=== PATIENT | female | born 1935 | race Two or more races ===

== ENCOUNTER 2018-01-08 15:24 | Inpatient (IN) | payer MEDICARE, MEDICAID ==
[2018-01-08 16:41] LABS: BASOPHILE ABSOLUTE 0.1 Th/cumm (0-0.2); EOSINOPHILE ABSOLUTE 0.1 Th/cmm (0.1-0.4); LYMPHOCYTE ABSOLUTE 1.6 Th/cmm (1.5-3.0); MEAN CELL VOLUME 89.2 fl (81-100); MONOCYTE ABSOLUTE 0.5 Th/cmm (0.3-1.0)
[2018-01-08 16:43] LABS: % BASOPHILS 1.7 % (0.0-2.0); % LYMPHOCYTES 25.1 % (20.0-50.0); % MONOCYTES 7.8 % (2.0-10.0); % NEUTROPHILS 63.4 % (40.0-80.0); HEMATOCRIT 38.1 % (41.0-60); HEMOGLOBIN 12.7 gm/dL (12-16); MEAN CORPUSCULAR HEMOGLOBIN 29.7 pg (27.0-31.0); MEAN CORPUSCULAR HGB CONC 33.3 pg (28.0-36.0); MEAN PLATELET VOLUME 7.8 fl; NEUTROPHILE ABSOLUTE 4.2 Th/cmm (1.8-8.0); PLATELET COUNT 253 Th/cmm (150-400); RED BLOOD COUNT 4.27 Mil/cmm (3.80-5.20); WHITE BLOOD COUNT 6.5 Th/cmm (4.8-10.8)
[2018-01-08 16:55] LABS: INR 1.76 (0.5-1.4); PROTHROMBIN TIME (TEST) 17.8 SECONDS (9.5-11.5)
[2018-01-08 17:01] LABS: ALB/GLOB RATIO 1.2 (1.0-1.8); ALBUMIN 3.7 gm/dL (3.7-5.3); ALKALINE PHOSPHATASE 90 U/L (34-104); ANION GAP 11.7 (7.0-16.0); BILIRUBIN,TOTAL 0.4 mg/dL (0.3-1.0); BUN - UREA NITROGEN 26 mg/dL (7-25); CARBON DIOXIDE 27.5 mEq/L (21.0-31.0); CHLORIDE 100 mEq/L (98-107); CREATININE - SERUM 0.8 mg/dL (0.6-1.2); GLUCOSE 103 mg/dL (70-105); MAGNESIUM 2.2 mg/dL (1.9-2.7); PHOSPHOROUS 3.4 mg/dL (2.5-5.0); POTASSIUM SERUM 4.2 mEq/L (3.5-5.1); SGOT 24 U/L (13-39); SGPT/ALT 26 U/L (7-52); SODIUM SERUM 135 mEq/L (136-145); TOTAL PROTEIN,SERUM 6.9 gm/dL (6.0-8.3)
[2018-01-08] MEDS ORDERED: D5LR 1,000 ML IV ONE (17:03)
[2018-01-08 17:07] LABS: URINE SOURCE CATH
[2018-01-08 17:08] LABS: URINE BILIRUBIN NEGATIVE (NEGATIVE); URINE BLOOD NEGATIVE (NEGATIVE); URINE GLUCOSE (UA) NEGATIVE (NEGATIVE); URINE KETONE NEGATIVE (NEGATIVE); URINE LEUKOCYTE ESTERASE NEGATIVE (NEGATIVE); URINE MICROSCOPIC INDICATED? YES; URINE NITRATE POSITIVE (NEGATIVE); URINE PROTEIN NEGATIVE (NEGATIVE); URINE UROBILINOGEN 0.2 E.U./dL (0.2 - 1.0)
[2018-01-08 17:11] LABS: URINE CLARITY HAZY (CLEAR); URINE COLOR YELLOW
[2018-01-08 17:14] LABS: URINE BACTERIA 4+ /hpf (NONE SEEN); URINE EPITHELIAL CELLS FEW /lpf (FEW); URINE RBC 0-2 /hpf (0-5)
[2018-01-08 17:19] LABS: AMPHETAMINE URINE NEGATIVE (NEGATIVE); BARBITURATES URINE NEGATIVE (NEGATIVE); BENZODIAZEPINES QUAL URINE NEGATIVE (NEGATIVE); CANNABINOID THC NEGATIVE (NEGATIVE); COCAINE METABOLITE QUAL URINE NEGATIVE (NEGATIVE); METHADONE URINE NEGATIVE (NEGATIVE); METHAMPHETAMINES QUAL URINE NEGATIVE (NEGATIVE); OPIATES (MORPHINE) QUAL. URINE NEGATIVE (NEGATIVE); PHENCYCLIDINE (PCP) URINE NEGATIVE (NEGATIVE); TRICYCLICS (TCA) QUAL. URINE NEGATIVE (NEGATIVE)
--- NOTE | 2018-01-08 17:27 | ED Physician Chart ---
ED Chief Complaint/HPI - Patient Information Date Seen:: 01/08/18 Time Seen:: 15:35 Chief Complaint:: poor appetite History of Present Illness:: poor appetite in a patient who has had a previous stroke. according to the daughter, she occasionally coughs with liquids. she has had pneumonia in the past. she is on coumadin at this time. Allergies:: Allergies Allergy/AdvReac Type Severity Reaction Status Date / Time Penicillins [PCN] Allergy Verified 01/08/18 15:35 Vitals:: Vital Signs - 8 hr 01/08/18 15:35 Temp 98.9 F HR 66 RR 16 BP 106/65 O2 Sat % 97 Historian:: Family Member Review:: Nurse's Note Reviewed ED Review of Systems - Review of Systems General/Constitutional: No fever, No chills, No weight loss, No weakness, No diaphoresis, No edema, No loss of appetite, Other Skin: Skin lesions, No rash, No bruising Head: No headache, No light-headedness Eyes: No loss of vision, No pain, No diplopia ENT: No earache, No nasal drainage, No sore throat, No tinnitus Neck: No neck pain, No swelling, No thyromegaly, No stiffness, No mass noted Cardio Vascular: No chest pain, No palpitations, No PND, No orthopnea, No edema Pulmonary: No SOB, No cough, No sputum, No wheezing GI: No nausea, No vomiting, No diarrhea, No pain, No melena, No hematochezia, No constipation, No hematemesis G/U: No dysuria, No frequency, No hematuria Musculoskeletal: No bone or joint pain, No back pain, No muscle pain Endocrine: No polyuria, No polydipsia Psychiatric: No prior psych history, No depression, No anxiety, No suicidal ideation Hematopoietic: No bruising, No lymphadenopathy Allergic/Immuno: No urticaria, No angioedema Neurological: No syncope, No focal symptoms, No weakness, No paresthesia, No headache, No seizure, No dizziness, No confusion, No vertigo ED Past Medical History - Past Medical History Obtainable: No Past Medical History: HTN, CVA/TIA, Other (atrial fibrillation; pneumonia) Family Medical History - Family Member Daughter Living Status: Still Living Hx Family Diabetes: Yes ED Physical Exam - Physical Examination General/Constitutional: Awake, Well-developed, well-nourished, Alert, No distress, GCS 15, Non-toxic appearing, Ambulatory Head: Atraumatic Eyes: Lids, conjuctiva normal, PERRL, EOMI Skin: Nl inspection, No rash, No skin lesions, No ecchymosis, Well hydrated, No lymphadenopathy ENMT: External ears, nose nl Neck: Nontender, No nuchal rigidity Respiratory: Nl effort/Exclusion Other Respiratory comments:: decreased breath sounds at bases. Cardio Vascular: RRR, No murmur, gallop, rubs, NL S1 S2 GI: No tenderness/rebounding/guarding, No organomegaly, No hernia, Normal BS's, Nondistended : No CVA tenderness Other Extremities comments:: RUE and RLE with decreased strength and with edema. Neuro/Psych: Mood normal Other Neuro/Psych comments:: RUE and RLE with decreased strength and with edema. Other Misc comments:: sacral stage I ED Labs/Radiology/EKG Results - Lab Results Results: Laboratory Tests 01/08/18 01/08/18 01/08/18 16:30 16:30 16:30 WBC 6.5 RBC 4.27 Hgb 12.7 Hct 38.1 L MCV 89.2 MCH 29.7 MCHC Differential 33.3 RDW 17.0 Plt Count 253 MPV 7.8 Neutrophils % 63.4 Lymphocytes % 25.1 Monocytes % 7.8 Eosinophils % 2.0 Basophils % 1.7 PT INR PTT (Actin FS) Sodium 135 L Potassium 4.2 Chloride 100 Carbon Dioxide 27.5 Anion Gap 11.7 BUN 26 H Creatinine 0.8 Est GFR ( Amer) TNP Est GFR (Non-Af Amer) TNP BUN/Creatinine Ratio 32.5 Glucose 103 Whole Bld Lactic Acid Calcium 9.0 Phosphorus 3.4 Magnesium 2.2 Total Bilirubin 0.4 AST 24 ALT 26 Alkaline Phosphatase 90 Troponin I 0.01 Total Protein 6.9 Albumin 3.7 Globulin 3.2 Albumin/Globulin Ratio 1.2 Urine Source Urine Color Urine Clarity Urine pH Ur Specific [place] Urine Protein Urine Glucose (UA) Urine Ketones Urine Blood Urine Nitrate Urine Bilirubin Urine Urobilinogen Ur Leukocyte Esterase Urine RBC Urine WBC Ur Epithelial Cells Urine Bacteria Urine Opiates Screen Urine Methadone Screen Ur Barbiturates Screen Ur Tricyclics Screen Ur Phencyclidine Scrn Amphetamines Screen U Methamphetamines Scrn U Benzodiazepines Scrn U Cocaine Metab Screen U Cannabinoids Screen 01/08/18 01/08/18 01/08/18 16:30 16:30 16:54 WBC RBC Hgb Hct MCV MCH MCHC Differential RDW Plt Count MPV Neutrophils % Lymphocytes % Monocytes % Eosinophils % Basophils % PT 17.8 H INR 1.76 H PTT (Actin FS) 32.1 Sodium Potassium Chloride Carbon Dioxide Anion Gap BUN Creatinine Est GFR ( Amer) Est GFR (Non-Af Amer) BUN/Creatinine Ratio Glucose Whole Bld Lactic Acid 1.14 Calcium Phosphorus Magnesium Total Bilirubin AST ALT Alkaline Phosphatase Troponin I Total Protein Albumin Globulin Albumin/Globulin Ratio Urine Source CATH Urine Color YELLOW Urine Clarity HAZY Urine pH 7.0 Ur Specific [place] 1.010 Urine Protein NEGATIVE Urine Glucose (UA) NEGATIVE Urine Ketones NEGATIVE Urine Blood NEGATIVE Urine Nitrate POSITIVE H Urine Bilirubin NEGATIVE Urine Urobilinogen 0.2 Ur Leukocyte Esterase NEGATIVE Urine RBC 0-2 Urine WBC 6-10 H Ur Epithelial Cells FEW Urine Bacteria 4+ H Urine Opiates Screen Urine Methadone Screen Ur Barbiturates Screen Ur Tricyclics Screen Ur Phencyclidine Scrn Amphetamines Screen U Methamphetamines Scrn U Benzodiazepines Scrn U Cocaine Metab Screen U Cannabinoids Screen 01/08/18 16:54 WBC RBC Hgb Hct MCV MCH MCHC Differential RDW Plt Count MPV Neutrophils % Lymphocytes % Monocytes % Eosinophils % Basophils % PT INR PTT (Actin FS) Sodium Potassium Chloride Carbon Dioxide Anion Gap BUN Creatinine Est GFR ( Amer) Est GFR (Non-Af Amer) BUN/Creatinine Ratio Glucose Whole Bld Lactic Acid Calcium Phosphorus Magnesium Total Bilirubin AST ALT Alkaline Phosphatase Troponin I Total Protein Albumin Globulin Albumin/Globulin Ratio Urine Source Urine Color Urine Clarity Urine pH Ur Specific [place] Urine Protein Urine Glucose (UA) Urine Ketones Urine Blood Urine Nitrate Urine Bilirubin Urine Urobilinogen Ur Leukocyte Esterase Urine RBC Urine WBC Ur Epithelial Cells Urine Bacteria Urine Opiates Screen NEGATIVE Urine Methadone Screen NEGATIVE Ur Barbiturates Screen NEGATIVE Ur Tricyclics Screen NEGATIVE Ur Phencyclidine Scrn NEGATIVE Amphetamines Screen NEGATIVE U Methamphetamines Scrn NEGATIVE U Benzodiazepines Scrn NEGATIVE U Cocaine Metab Screen NEGATIVE U Cannabinoids Screen NEGATIVE ED Assessment - Assessment General Assessment: EKG from 16:05:47 p.m.: atrial fibrillation, Q wave III and AVF with flipped t wave in V1. CXR reveals some bronchograms and a possible early RLL infiltrate. ED Septic Shock - . Is Septic Shock (SBP<90, OR Lactate>4 mmol\L) present?: No - <6hrs of presentation: Vital Signs: Vital Signs - 8 hr 01/08/18 15:35 Temp 98.9 F HR 66 RR 16 BP 106/65 O2 Sat % 97 ED Reassessment (Disposition) - Reassessment Reassessment Condition:: Unchanged - Diagnosis Diagnosis:: Right lower lobe infiltrate Urinary tract infection Hemiplegia s/p prior CVA Elevated prothrombin time - Patient Disposition Discharge/Transfer:: Acute Care w/in this hosp Accepting Physician:: Dr. Alvarado Time Called:: 17:48 Time Responded:: 17:48 Admitted to:: Telemetry Condition at Disposition:: Stable, Unchanged
[2018-01-08] MEDS ORDERED: Levofloxacin 500mg/100mL 500 MG/100 ML BAG IV ONE ×2 (17:54→18:12)
[2018-01-08 21:22] VITALS: BP 122/69
[2018-01-09 05:20] LABS: EOSINOPHILE ABSOLUTE 0.2 Th/cmm (0.1-0.4); HEMOGLOBIN 11.9 gm/dL (12-16); LYMPHOCYTE ABSOLUTE 1.3 Th/cmm (1.5-3.0); MONOCYTE ABSOLUTE 0.5 Th/cmm (0.3-1.0); NEUTROPHILE ABSOLUTE 4.8 Th/cmm (1.8-8.0); WHITE BLOOD COUNT 6.8 Th/cmm (4.8-10.8)
[2018-01-09 05:23] LABS: % BASOPHILS 0.2 % (0.0-2.0); % EOSINOPHILS 2.3 % (0.0-5.0); % LYMPHOCYTES 19.2 % (20.0-50.0); % MONOCYTES 6.9 % (2.0-10.0); % NEUTROPHILS 71.4 % (40.0-80.0); HEMATOCRIT 35.8 % (41.0-60); MEAN CELL VOLUME 89.5 fl (81-100); MEAN CORPUSCULAR HEMOGLOBIN 29.7 pg (27.0-31.0); MEAN CORPUSCULAR HGB CONC 33.2 pg (28.0-36.0); RED CELL DISTRIBUTION WIDTH 17.2 % (11.5-20.0)
[2018-01-09 05:26] LABS: PLATELET COUNT 200 Th/cmm (150-400)
[2018-01-09] MEDS: Sodium Chloride 0.45% 1,000 ML IV SCH (05:58)
[2018-01-09 06:47] LABS: ALB/GLOB RATIO 1.1 (1.0-1.8); ALBUMIN 3.2 gm/dL (3.7-5.3); ALKALINE PHOSPHATASE 79 U/L (34-104); ANION GAP 11.5 (7.0-16.0); BILIRUBIN,TOTAL 0.6 mg/dL (0.3-1.0); BUN - UREA NITROGEN 18 mg/dL (7-25); CALCIUM SERUM 8.6 mg/dL (8.6-10.3); CARBON DIOXIDE 25.3 mEq/L (21.0-31.0); CHLORIDE 107 mEq/L (98-107); CREATININE - SERUM 0.7 mg/dL (0.6-1.2); CREATININE KINASE 31 U/L (30-223); GLUCOSE 95 mg/dL (70-105); POTASSIUM SERUM 3.8 mEq/L (3.5-5.1); SGOT 20 U/L (13-39); SGPT/ALT 21 U/L (7-52); SODIUM SERUM 140 mEq/L (136-145)
--- NOTE | 2018-01-09 10:22 | Diagnostic Imaging Report ---
Exam: CT examination of the brain. HISTORY: CVA. Total DLP equals 685 CTDI equals 37.4 Findings: Multiple contiguous thin section of the brain were obtained from the base of skull to the vertex without the administration of contrast material, no prior studies available for comparison The study demonstrates large area hypodensity suggestive of extensive encephalomalacia of the left parietal lobe. There is evidence for chronic ischemic white matter changes bilaterally. There is no evidence for hemorrhage midline shift or edema. The bony calvarium is intact. The paranasal sinuses are well aerated. IMPRESSION: Extensive encephalomalacia status post wide infarct in distribution left middle cerebral artery. Correlation prior exams recommended. Atrophy
--- NOTE | 2018-01-09 10:23 | Diagnostic Imaging Report ---
Portable chest x-ray Time: 1642 History: Pneumonia Allowing for portable technique the heart size is normal. No focal pulmonary parenchymal processes. No hilar or mediastinal abnormalities. Mild congestion is present Impression: No acute abnormalities. Mild congestion.
[2018-01-09] MEDS ORDERED: Ipratropium Neb 0.5 mg/2.5 mL UD HHN PRN (12:48)
[2018-01-09] MEDS ORDERED: Levofloxacin 500mg/100mL 500 MG/100 ML BAG IV SCH (13:00)
[2018-01-09] MEDS: Potassium Chloride 20 mEq ER Tab PO SCH (13:21)
[2018-01-09] MEDS ORDERED: Diltiazem 30 mg Tab PO SCH (14:00)
--- NOTE | 2018-01-09 15:55 | History & Physical ---
ADMIT DATE: 01/09/2018 CHIEF COMPLAINT: Poor appetite and weakness. HISTORY OF PRESENT ILLNESS: This is an 82-year-old female who was admitted to [facility] with a chief complaint of weakness and poor appetite. REVIEW OF SYSTEMS: GENERAL: This is an 82-year-old female who appears as stated. HEAD: Denies headache, denies dizziness. EYES: Denies eye pain. Denies blurring of vision. NECK: Denies neck pain. Denies nuchal rigidity. CHEST: Denies chest pain. Denies palpitation. PULMONARY: Denies shortness of breath. Positive cough. GASTROINTESTINAL: Denies abdominal pain. Denies constipation. Denies diarrhea. MUSCULOSKELETAL: Denies joint pain. Denies muscle pain. SOCIAL HISTORY: The patient lives in a shelter facility prior to hospitalization. PAST SURGICAL HISTORY: Unremarkable. FAMILY HISTORY: Unremarkable. PAST MEDICAL HISTORY: Includes hypertension, atrial fibrillation. PHYSICAL EXAMINATION: VITAL SIGNS: Temperature 97.3, heart rate of 86, blood pressure 124/75, respiration 18, 96% on room air. HEENT: Head is atraumatic, normocephalic. Eyes: Bilateral conjunctivae are clear. Bilateral pupils are equally round and reactive. NECK: Supple. No JVD. CARDIOVASCULAR: S1 and S2, without murmur. PULMONARY: Clear to auscultation. GASTROINTESTINAL: Soft and nontender without guarding. Positive bowel sounds. MUSCULOSKELETAL: No clubbing. No cyanosis noted. ASSESSMENT: 1. Urinary tract infection. 2. History of cerebrovascular accident. 3. Hypertension. 4. Atrial fibrillation. PLAN: We will admit the patient and will initiate IV antibiotics until we get the culture results. We are also going to follow up with the ID doctor and dope mixer and do medication reconciliation accordingly. Treatment plans were discussed with the patient's nurse. Treatment plans were discussed with Dr. Alvarado. JOB# [id number]
[2018-01-09] MEDS: Diltiazem 30 mg Tab PO SCH (17:55)
[2018-01-10] MEDS: Diltiazem 30 mg Tab PO SCH ×4 (00:01→17:17)
[2018-01-10] MEDS: Sodium Chloride 0.45% 1,000 ML IV SCH (04:40)
[2018-01-10 05:42] LABS: % BASOPHILS 0.1 % (0.0-2.0); % EOSINOPHILS 2.5 % (0.0-5.0); % LYMPHOCYTES 26.4 % (20.0-50.0); % MONOCYTES 8.2 % (2.0-10.0); % NEUTROPHILS 62.8 % (40.0-80.0); EOSINOPHILE ABSOLUTE 0.2 Th/cmm (0.1-0.4); HEMATOCRIT 35.3 % (41.0-60); LYMPHOCYTE ABSOLUTE 1.6 Th/cmm (1.5-3.0); MEAN CELL VOLUME 89.7 fl (81-100); MEAN CORPUSCULAR HEMOGLOBIN 30.3 pg (27.0-31.0); MEAN CORPUSCULAR HGB CONC 33.8 pg (28.0-36.0); MEAN PLATELET VOLUME 7.7 fl; MONOCYTE ABSOLUTE 0.5 Th/cmm (0.3-1.0); NEUTROPHILE ABSOLUTE 3.9 Th/cmm (1.8-8.0); PLATELET COUNT 219 Th/cmm (150-400); RED BLOOD COUNT 3.94 Mil/cmm (3.80-5.20); RED CELL DISTRIBUTION WIDTH 16.9 % (11.5-20.0); WHITE BLOOD COUNT 6.2 Th/cmm (4.8-10.8)
[2018-01-10 05:53] LABS: INR 1.76 (0.5-1.4); PROTHROMBIN TIME (TEST) 17.8 SECONDS (9.5-11.5)
[2018-01-10 06:01] LABS: ALB/GLOB RATIO 1.1 (1.0-1.8); ALBUMIN 3.1 gm/dL (3.7-5.3); ALKALINE PHOSPHATASE 76 U/L (34-104); ANION GAP 10.9 (7.0-16.0); BILIRUBIN,TOTAL 0.7 mg/dL (0.3-1.0); BUN - UREA NITROGEN 15 mg/dL (7-25); CALCIUM SERUM 8.5 mg/dL (8.6-10.3); CARBON DIOXIDE 23.8 mEq/L (21.0-31.0); CHLORIDE 106 mEq/L (98-107); CREATININE - SERUM 0.7 mg/dL (0.6-1.2); GLUCOSE 93 mg/dL (70-105); POTASSIUM SERUM 3.7 mEq/L (3.5-5.1); SGOT 19 U/L (13-39); SGPT/ALT 19 U/L (7-52); SODIUM SERUM 137 mEq/L (136-145); TOTAL PROTEIN,SERUM 5.9 gm/dL (6.0-8.3)
[2018-01-10] MEDS: Potassium Chloride 20 mEq ER Tab PO SCH (08:32)
[2018-01-10] MEDS: Potassium Chloride 10 mEq ER Tab PO SCH (08:32)
--- NOTE | 2018-01-10 10:54 | Internal Medicine Prog Note ---
Internal Medicine Subjective - Subjective Patient seen and examined:: chart reviewed Patient is:: awake, verbal Patient Complaints of:: other (weakness) Per staff patient has:: poor appetite Internal Medicine Objective - Results Result Diagrams: 01/10/18 05:15 01/10/18 05:15 Recent Labs: Laboratory Last Values WBC 6.2 Th/cmm (4.8-10.8) 01/10/18 05:15 RBC 3.94 Mil/cmm (3.80-5.20) 01/10/18 05:15 Hgb 12.0 gm/dL (12-16) 01/10/18 05:15 Hct 35.3 % (41.0-60) L 01/10/18 05:15 MCV 89.7 fl (81-100) 01/10/18 05:15 MCH 30.3 pg (27.0-31.0) 01/10/18 05:15 MCHC Differential 33.8 pg (28.0-36.0) 01/10/18 05:15 RDW 16.9 % (11.5-20.0) 01/10/18 05:15 Plt Count 219 Th/cmm (150-400) 01/10/18 05:15 MPV 7.7 fl 01/10/18 05:15 Neutrophils % 62.8 % (40.0-80.0) 01/10/18 05:15 Lymphocytes % 26.4 % (20.0-50.0) 01/10/18 05:15 Monocytes % 8.2 % (2.0-10.0) 01/10/18 05:15 Eosinophils % 2.5 % (0.0-5.0) 01/10/18 05:15 Basophils % 0.1 % (0.0-2.0) 01/10/18 05:15 PT 17.8 SECONDS (9.5-11.5) H 01/10/18 05:15 INR 1.76 (0.5-1.4) H 01/10/18 05:15 PTT (Actin FS) 32.1 SECONDS (26.0-38.0) 01/08/18 16:30 Sodium 137 mEq/L (136-145) 01/10/18 05:15 Potassium 3.7 mEq/L (3.5-5.1) 01/10/18 05:15 Chloride 106 mEq/L (98-107) 01/10/18 05:15 Carbon Dioxide 23.8 mEq/L (21.0-31.0) 01/10/18 05:15 Anion Gap 10.9 (7.0-16.0) 01/10/18 05:15 BUN 15 mg/dL (7-25) 01/10/18 05:15 Creatinine 0.7 mg/dL (0.6-1.2) 01/10/18 05:15 Est GFR ( Amer) TNP 01/10/18 05:15 Est GFR (Non-Af Amer) TNP 01/10/18 05:15 BUN/Creatinine Ratio 21.4 01/10/18 05:15 Glucose 93 mg/dL (70-105) 01/10/18 05:15 Whole Bld Lactic Acid 1.14 mmol/L (0.60-1.99) 01/08/18 16:30 Calcium 8.5 mg/dL (8.6-10.3) L 01/10/18 05:15 Phosphorus 3.4 mg/dL (2.5-5.0) 01/08/18 16:30 Magnesium 2.2 mg/dL (1.9-2.7) 01/08/18 16:30 Total Bilirubin 0.7 mg/dL (0.3-1.0) 01/10/18 05:15 AST 19 U/L (13-39) 01/10/18 05:15 ALT 19 U/L (7-52) 01/10/18 05:15 Alkaline Phosphatase 76 U/L (34-104) 01/10/18 05:15 Creatine Kinase 31 U/L (30-223) 01/09/18 06:00 Troponin I 0.01 ng/mL (0.01-0.05) 01/08/18 16:30 B-Natriuretic Peptide 302.0 pg/mL (5.0-100.0) H 01/10/18 05:15 Total Protein 5.9 gm/dL (6.0-8.3) L 01/10/18 05:15 Albumin 3.1 gm/dL (3.7-5.3) L 01/10/18 05:15 Globulin 2.8 gm/dL 01/10/18 05:15 Albumin/Globulin Ratio 1.1 (1.0-1.8) 01/10/18 05:15 TSH 0.42 uIU/ml (0.34-5.60) 01/08/18 16:30 Urine Source CATH 01/08/18 16:54 Urine Color YELLOW 01/08/18 16:54 Urine Clarity HAZY (CLEAR) 01/08/18 16:54 Urine pH 7.0 (4.6 - 8.0) 01/08/18 16:54 Ur Specific [place] 1.010 (1.005-1.030) 01/08/18 16:54 Urine Protein NEGATIVE mg/dL (NEGATIVE) 01/08/18 16:54 Urine Glucose (UA) NEGATIVE mg/dL (NEGATIVE) 01/08/18 16:54 Urine Ketones NEGATIVE mg/dL (NEGATIVE) 01/08/18 16:54 Urine Blood NEGATIVE (NEGATIVE) 01/08/18 16:54 Urine Nitrate POSITIVE (NEGATIVE) H 01/08/18 16:54 Urine Bilirubin NEGATIVE (NEGATIVE) 01/08/18 16:54 Urine Urobilinogen 0.2 E.U./dL (0.2 - 1.0) 01/08/18 16:54 Ur Leukocyte Esterase NEGATIVE (NEGATIVE) 01/08/18 16:54 Urine RBC 0-2 /hpf (0-5) 01/08/18 16:54 Urine WBC 6-10 /hpf (0-5) H 01/08/18 16:54 Ur Epithelial Cells FEW /lpf (FEW) 01/08/18 16:54 Urine Bacteria 4+ /hpf (NONE SEEN) H 01/08/18 16:54 Urine Opiates Screen NEGATIVE (NEGATIVE) 01/08/18 16:54 Urine Methadone Screen NEGATIVE (NEGATIVE) 01/08/18 16:54 Ur Barbiturates Screen NEGATIVE (NEGATIVE) 01/08/18 16:54 Ur Tricyclics Screen NEGATIVE (NEGATIVE) 01/08/18 16:54 Ur Phencyclidine Scrn NEGATIVE (NEGATIVE) 01/08/18 16:54 Amphetamines Screen NEGATIVE (NEGATIVE) 01/08/18 16:54 U Methamphetamines Scrn NEGATIVE (NEGATIVE) 01/08/18 16:54 U Benzodiazepines Scrn NEGATIVE (NEGATIVE) 01/08/18 16:54 U Cocaine Metab Screen NEGATIVE (NEGATIVE) 10/26/18 16:54 U Cannabinoids Screen NEGATIVE (NEGATIVE) 01/08/18 16:54 - Physical Exam Vitals and I&O: Vital Signs Temp 97.3 F 01/10/18 07:50 Pulse 91 01/10/18 07:50 Resp 18 01/10/18 07:50 BP 124/67 01/10/18 08:32 Pulse Ox 99 01/10/18 07:50 Intake & Output 01/09/18 01/10/18 01/10/18 18:59 06:59 18:59 Intake Total 1000 Balance 1000 Weight (lbs) 60.781 kg 61.19 kg Intake: Intake, IV Amount 1000 Sodium Chloride 0.45% 1, 1000 000 ml @ 50 mls/hr IV . Q20H [facility] Rx#:[id number] Other: # Voids 4 3 # Bowel Movements 0 0 Weight Source Bedscale Bedscale Active Medications: Current Medications Diltiazem HCl (Cardizem) 60 mg PO Q6HR KY[facility] Stop: 03/10/18 17:59 Last Admin: 01/10/18 06:02 Dose: Not Given Furosemide (Lasix) 20 mg IVP DAILY KY[facility] Stop: 03/11/18 08:59 Last Admin: 01/10/18 08:32 Dose: 20 mg Furosemide (Lasix) 20 mg PO DAILY KYRA Stop: 03/10/18 12:59 Last Admin: 01/10/18 08:32 Dose: 20 mg Sodium Chloride (Nacl 0.45%) 1,000 mls @ 50 mls/hr IV .Q20H [facility]RA Stop: 03/09/18 21:19 Last Admin: 01/10/18 04:40 Dose: 50 mls/hr Levofloxacin (Levaquin Pb) 500 mg in 100 mls @ 100 mls/hr IV Q24HR [facility] Stop: 03/10/18 12:59 Last Admin: 01/09/18 13:19 Dose: 100 mls/hr Ipratropium [place] (Atrovent Neb 0.5mg/2.5ml) 0.5 mg HHN Q4HR PRN PRN Reason: Shortness of Breath Stop: 03/10/18 12:47 Potassium Chloride (Klor-Con) 10 meq PO DAILY KYRA Stop: 03/11/18 08:59 Last Admin: 01/10/18 08:32 Dose: 10 meq Potassium Chloride (Klor-Con) 20 meq PO DAILY KYRA Stop: 03/10/18 12:59 Last Admin: 01/10/18 08:32 Dose: 20 meq Warfarin Sodium (Coumadin) 1.5 mg PO SuTuThSa@1300 KYRA; Protocol Stop: 03/10/18 12:59 Last Admin: 01/09/18 13:21 Dose: 1.5 mg Warfarin Sodium (Coumadin) 2 mg PO MWF@1300 KYRA; Protocol Stop: 03/12/18 12:59 General: alert HEENT: NC/AT Neck: Supple Lungs: CTAB Cardiovascular: Normal S1, Normal S2 Abdomen: soft, non-tender Extremities: clear Neurological: no change Internal Medicine Assmt/Plan - Assessment Assessment: uti h/o cva htn atrial fib - Plan Plan: as per order sheet
[2018-01-10] MEDS: Meropenem 500 MG in Sodium Chloride 0.9% 100 ML IV SCH ×2 (12:34→20:53)
--- NOTE | 2018-01-10 17:31 | Cardiology ---
01/09/[address] Alvarado. M-MODE ECHOCARDIOGRAM: Mitral valve, anterior leaflet of mitral valve shows normal excursion, EF velocity. Posterior leaflet of the mitral valve shows normal excursion. Left ventricular posterior wall showed normal thickness, excursion. Interventricular septum showed normal thickness, excursion. Ejection fraction 65%. Left atrium normal. Aortic root shows normal dimension, normal excursion of aortic leaflets. CONCLUSION: Normal M-Mode echo, ejection fraction 65%. 2D ECHO: Long axis view showed normal sized left ventricle with normal wall motion, mitral valve shows normal excursion. Left atrium normal. Aortic root shows normal dimension, normal excursion of aortic leaflets. Short axis view of mitral valve normal. Short axis view of aortic valve normal. Apical four-chamber view showed normal sized left ventricle, left atrium, right ventricle and right atrium enlarged. CONCLUSION: Right atrial enlargement, ejection fraction 65%. Doppler study shows moderate mitral regurgitation, [id number] tricuspid regurgitation, right ventricular systolic pressure 48 mmHg with mild pulmonary hypertension. [facility]# [id number]
--- NOTE | 2018-01-10 17:42 | Consultation ---
DATE OF CONSULTATION: 01/09/[address] Alvarado. HISTORY AND PHYSICAL: This 82-year-old female patient who was admitted to [facility] complaining of weakness, tiredness and short of breath. The patient had atrial fibrillation with elevated BNP level and the patient is admitted and cardiac consult requested. PAST MEDICAL HISTORY: The patient has a history of atrial fibrillation, CVA with late effect and hypertension. FAMILY HISTORY: Unremarkable. SOCIAL HISTORY: No history of smoking, alcohol abuse. ALLERGIES: No known allergies. PHYSICAL EXAMINATION: VITAL SIGNS: Blood pressure 105/48, pulse 91 and irregular and respirations 20. HEAD: Normocephalic. No lumps or bumps. EYES: Pupils equal and reactive to light. Fundi show AV nicking, sclerae white, conjunctivae pink. NECK: Carotid 2+. Normal upstroke. JVD 10 cm above sternal angle. Thyroid not palpable. Lymph nodes not palpable. CHEST: Shows increased AP diameter. No kyphosis or scoliosis. LUNGS: Bilateral rales. Decreased breath sounds both the bases. HEART: PMI, fifth intercostal space with lateral to midclavicular line. S1 irregular. S2, S3, S4, soft systolic murmur. ABDOMEN: Soft. Liver and spleen not palpable. No organomegaly. Bowel sounds active. NEUROLOGIC: No focal neurological deficit. EXTREMITIES: Peripheral pulses 2+. No pedal edema. CLINICAL IMPRESSION: Congestive heart failure, diastolic dysfunction, [id number] cerebrovascular accident with late effect, urinary tract infection, hypertension and atrial fibrillation. PLAN: Continue present care and antibiotics, fluid restriction and IV Lasix. JOB# [id number]
[2018-01-11] MEDS: Diltiazem 30 mg Tab PO SCH ×3 (00:15→14:03)
[2018-01-11] MEDS: Sodium Chloride 0.45% 1,000 ML IV SCH (00:33)
--- NOTE | 2018-01-11 04:23 | Consultation ---
DATE OF CONSULTATION: 01/10/2018 INFECTIOUS DISEASE CONSULTATION REFERRING PHYSICIAN: Dr. Alvarado. REASON FOR CONSULTATION: UTI. HISTORY OF PRESENT ILLNESS: The patient is a 52-year-old female with a past medical history of hypertension and atrial fibrillation, admitted to [facility] for generalized weakness and poor appetite. On initial evaluation, the patient's temperature was 98.9 degrees Fahrenheit and WBC count was 6500. Urinalysis showed hazy urine with wbc's 6-10 and 4+ bacteria. The patient was diagnosed to have UTI and urine culture grew ESBL Escherichia coli. ID consult was called for further antibiotic management. The patient was receiving Levaquin, which was changed to meropenem. PAST MEDICAL HISTORY: Hypertension, atrial fibrillation. SOCIAL HISTORY: The patient lives at nursing facility. No history of smoking, alcohol or drug use. PAST SURGICAL HISTORY: Noncontributory. FAMILY HISTORY: Unremarkable. REVIEW OF SYSTEMS: GENERAL: The patient has no fever, no chills. HEENT: No diplopia, no photophobia, no sore throat. RESPIRATORY: No cough, no shortness of breath. CARDIOVASCULAR: No chest pain or palpitation. GASTROINTESTINAL: No nausea, no vomiting, no diarrhea, no constipation. GENITOURINARY: No dysuria. No headache. GENITOURINARY: No dysuria, no hematuria. CENTRAL NERVOUS SYSTEM: No headache, no dizziness, no focal weakness. SKIN: The patient has no rash, no ulcer. PHYSICAL EXAMINATION: VITAL SIGNS: Shows temperature is 98 degrees Fahrenheit, pulse 95, respiration is 19, blood pressure 99/64. GENERAL: The patient is comfortable lying in the bed, not in acute distress. HEENT: Head is normocephalic, atraumatic. Oral cavity moist, pink tongue. Eyes: PERRLA, no pallor or icterus. PERRLA, EOMI. NECK: Supple, no JVD, no carotid bruit. Trachea in midline. CHEST: Bilateral breath sounds. No crackles or wheezing. HEART: S1, S2 within normal limits. Regular rhythm. No murmur, no gallop. ABDOMEN: Soft, nontender, nondistended. Bowel sounds present. EXTREMITIES: No cyanosis, no clubbing, no edema. NEUROLOGIC: Alert, awake, oriented x 3. LABORATORY DATA: Current lab shows WBC count is 6200, hemoglobin 12, hematocrit 35.3, platelets are 290,000, neutrophil is 63%. Sodium is 137, potassium 3.7, chloride 106, bicarbonate is 24, BUN is 15, creatinine 0.7, glucose is 93. Urinalysis shows positive nitrite, wbc's 6-10 and bacteria 4+. Urine culture grew ESBL Escherichia coli. Blood culture 1 set is negative and MRSA screen is negative. Chest x-ray showed no acute abnormality, mild congestion. CT scan of the head showed an extensive encephalomalacia, status post wide infarct in the distribution of the left middle cerebral artery. Atrophy. IMPRESSION: 1. Urinary tract infection. Urine culture grew ESBL Escherichia coli. 2. History of cerebrovascular accident. 3. Hypertension. 4. Atrial fibrillation. RECOMMENDATIONS: Continue meropenem for a total of 7 days. JOB# [id number] JULIO CESAR
[2018-01-11] MEDS: Potassium Chloride 10 mEq ER Tab PO SCH (08:20)
[2018-01-11] MEDS: Potassium Chloride 20 mEq ER Tab PO SCH (08:20)
[2018-01-11] MEDS ORDERED: Meropenem 500 MG in Sodium Chloride 0.9% 100 ML IV SCH (09:00)
--- NOTE | 2018-01-11 14:14 | Infectious Disease Prog Note ---
Infectious Disease Subjective - Review of Systems Service Date: 01/11/18 Subjective: Doing well. no fever. Infectious Disease Objective - Results Result Diagrams: 01/10/18 05:15 01/10/18 05:15 Recent Labs: Laboratory Last Values WBC 6.2 Th/cmm (4.8-10.8) 01/10/18 05:15 RBC 3.94 Mil/cmm (3.80-5.20) 01/10/18 05:15 Hgb 12.0 gm/dL (12-16) 01/10/18 05:15 Hct 35.3 % (41.0-60) L 01/10/18 05:15 MCV 89.7 fl (81-100) 01/10/18 05:15 MCH 30.3 pg (27.0-31.0) 01/10/18 05:15 MCHC Differential 33.8 pg (28.0-36.0) 01/10/18 05:15 RDW 16.9 % (11.5-20.0) 01/10/18 05:15 Plt Count 219 Th/cmm (150-400) 01/10/18 05:15 MPV 7.7 fl 01/10/18 05:15 Neutrophils % 62.8 % (40.0-80.0) 01/10/18 05:15 Lymphocytes % 26.4 % (20.0-50.0) 01/10/18 05:15 Monocytes % 8.2 % (2.0-10.0) 01/10/18 05:15 Eosinophils % 2.5 % (0.0-5.0) 01/10/18 05:15 Basophils % 0.1 % (0.0-2.0) 01/10/18 05:15 PT 17.8 SECONDS (9.5-11.5) H 01/10/18 05:15 INR 1.76 (0.5-1.4) H 01/10/18 05:15 PTT (Actin FS) 32.1 SECONDS (26.0-38.0) 01/08/18 16:30 Sodium 137 mEq/L (136-145) 01/10/18 05:15 Potassium 3.7 mEq/L (3.5-5.1) 01/10/18 05:15 Chloride 106 mEq/L (98-107) 01/10/18 05:15 Carbon Dioxide 23.8 mEq/L (21.0-31.0) 01/10/18 05:15 Anion Gap 10.9 (7.0-16.0) 01/10/18 05:15 BUN 15 mg/dL (7-25) 01/10/18 05:15 Creatinine 0.7 mg/dL (0.6-1.2) 01/10/18 05:15 Est GFR ( Amer) TNP 01/10/18 05:15 Est GFR (Non-Af Amer) TNP 01/10/18 05:15 BUN/Creatinine Ratio 21.4 01/10/18 05:15 Glucose 93 mg/dL (70-105) 01/10/18 05:15 Whole Bld Lactic Acid 1.14 mmol/L (0.60-1.99) 01/08/18 16:30 Calcium 8.5 mg/dL (8.6-10.3) L 01/10/18 05:15 Phosphorus 3.4 mg/dL (2.5-5.0) 01/08/18 16:30 Magnesium 2.2 mg/dL (1.9-2.7) 01/08/18 16:30 Total Bilirubin 0.7 mg/dL (0.3-1.0) 01/10/18 05:15 AST 19 U/L (13-39) 01/10/18 05:15 ALT 19 U/L (7-52) 01/10/18 05:15 Alkaline Phosphatase 76 U/L (34-104) 01/10/18 05:15 Creatine Kinase 31 U/L (30-223) 01/09/18 06:00 Troponin I 0.01 ng/mL (0.01-0.05) 01/08/18 16:30 B-Natriuretic Peptide 302.0 pg/mL (5.0-100.0) H 01/10/18 05:15 Total Protein 5.9 gm/dL (6.0-8.3) L 01/10/18 05:15 Albumin 3.1 gm/dL (3.7-5.3) L 01/10/18 05:15 Globulin 2.8 gm/dL 01/10/18 05:15 Albumin/Globulin Ratio 1.1 (1.0-1.8) 01/10/18 05:15 TSH 0.42 uIU/ml (0.34-5.60) 01/08/18 16:30 Urine Source CATH 01/08/18 16:54 Urine Color YELLOW 01/08/18 16:54 Urine Clarity HAZY (CLEAR) 01/08/18 16:54 Urine pH 7.0 (4.6 - 8.0) 01/08/18 16:54 Ur Specific [place] 1.010 (1.005-1.030) 01/08/18 16:54 Urine Protein NEGATIVE mg/dL (NEGATIVE) 01/08/18 16:54 Urine Glucose (UA) NEGATIVE mg/dL (NEGATIVE) 01/08/18 16:54 Urine Ketones NEGATIVE mg/dL (NEGATIVE) 01/08/18 16:54 Urine Blood NEGATIVE (NEGATIVE) 01/08/18 16:54 Urine Nitrate POSITIVE (NEGATIVE) H 01/08/18 16:54 Urine Bilirubin NEGATIVE (NEGATIVE) 01/08/18 16:54 Urine Urobilinogen 0.2 E.U./dL (0.2 - 1.0) 01/08/18 16:54 Ur Leukocyte Esterase NEGATIVE (NEGATIVE) 01/08/18 16:54 Urine RBC 0-2 /hpf (0-5) 01/08/18 16:54 Urine WBC 6-10 /hpf (0-5) H 01/08/18 16:54 Ur Epithelial Cells FEW /lpf (FEW) 01/08/18 16:54 Urine Bacteria 4+ /hpf (NONE SEEN) H 01/08/18 16:54 Urine Opiates Screen NEGATIVE (NEGATIVE) 01/08/18 16:54 Urine Methadone Screen NEGATIVE (NEGATIVE) 01/08/18 16:54 Ur Barbiturates Screen NEGATIVE (NEGATIVE) 01/08/18 16:54 Ur Tricyclics Screen NEGATIVE (NEGATIVE) 01/08/18 16:54 Ur Phencyclidine Scrn NEGATIVE (NEGATIVE) 01/08/18 16:54 Amphetamines Screen NEGATIVE (NEGATIVE) 01/08/18 16:54 U Methamphetamines Scrn NEGATIVE (NEGATIVE) 01/08/18 16:54 U Benzodiazepines Scrn NEGATIVE (NEGATIVE) 01/08/18 16:54 U Cocaine Metab Screen NEGATIVE (NEGATIVE) 01/08/18 16:54 U Cannabinoids Screen NEGATIVE (NEGATIVE) 01/08/18 16:54 - Physical Exam Vitals and I&O: Vital Signs Temp 97.4 F 01/11/18 13:30 Pulse 77 01/11/18 14:03 Resp 17 01/11/18 13:30 BP 120/71 01/11/18 13:30 Pulse Ox 100 01/11/18 13:30 Intake & Output 01/10/18 01/11/18 01/11/18 18:59 06:59 18:59 Intake Total 1200 994.167 Balance 1200 994.167 Weight (lbs) 61.19 kg 61.689 kg 60.963 kg Intake: Intake, IV Amount 100 994.167 Meropenem 500 mg In 100 Sodium Chloride 0.9% 100 ml @ 100 mls/hr IV Q8H [facility] Rx#:[id number] Sodium Chloride 0.45% 1, 994.167 000 ml @ 50 mls/hr IV . Q20H [facility] Rx#:[id number] Oral 1100 Other: # Voids 3 2 # Bowel Movements 0 Weight Source Bedscale Bedscale Bedscale Active Medications: Current Medications Diltiazem HCl (Cardizem) 60 mg PO Q6HR [facility] Stop: 03/10/18 17:59 Last Admin: 01/11/18 14:03 Dose: 60 mg Furosemide (Lasix) 20 mg IVP DAILY [facility] Stop: 03/11/18 08:59 Last Admin: 01/11/18 08:20 Dose: 20 mg Sodium Chloride (Nacl 0.45%) 1,000 mls @ 50 mls/hr IV .Q20H [facility] Stop: 03/09/18 21:19 Last Admin: 01/11/18 00:33 Dose: 50 mls/hr Meropenem 500 mg/ Sodium (Chloride) 100 mls @ 100 mls/hr IV Q12HR [facility] Stop: 03/12/18 08:59 Last Admin: 01/11/18 08:22 Dose: 100 mls/hr Ipratropium [place] (Atrovent Neb 0.5mg/2.5ml) 0.5 mg HHN Q4HR PRN PRN Reason: Shortness of Breath Stop: 03/10/18 12:47 Potassium Chloride (Klor-Con) 10 meq PO DAILY [facility] Stop: 03/11/18 08:59 Last Admin: 01/11/18 08:20 Dose: 10 meq Potassium Chloride (Klor-Con) 20 meq PO DAILY [facility] Stop: 03/10/18 12:59 Last Admin: 01/11/18 08:20 Dose: 20 meq Warfarin Sodium (Coumadin) 1.5 mg PO SuTuThSa@1300 [facility]; Protocol Stop: 03/10/18 12:59 Last Admin: 01/10/18 12:34 Dose: 1.5 mg Warfarin Sodium (Coumadin) 2 mg PO MWF@1300 [facility]; Protocol Stop: 03/12/18 12:59 Last Admin: 01/11/18 14:02 Dose: 2 mg General: no acute distress, well developed, well nourished HEENT: atraumatic, normocephalic, PERRLA, EOMI, moist mucous membrane Neck: supple, no thyromegaly, no lymphadenopathy Cardiovascular: S1S2, regular Lungs: clear to auscultation bilaterally, clear to percussion Abdomen: soft, no tender, no distended, no mass Extremities: no cyanosis, no clubbing, no edema Neurological: awake, alert, oriented Skin: intact Infectious Disease Assmt/Plan - Assessment Assessment: 1. UTI - ESBL E coli. 2. A fib. 3. HTN. - Plan Plan: Continue meropenem for total 7 days.
--- NOTE | 2018-01-11 14:45 | Internal Medicine Prog Note ---
Internal Medicine Subjective - Subjective Patient seen and examined:: chart reviewed, other (doing well ) Patient is:: awake, verbal Patient Complaints of:: other (weakness) Per staff patient has:: poor appetite Internal Medicine Objective - Results Result Diagrams: 01/10/18 05:15 01/10/18 05:15 Recent Labs: Laboratory Last Values WBC 6.2 Th/cmm (4.8-10.8) 01/10/18 05:15 RBC 3.94 Mil/cmm (3.80-5.20) 01/10/18 05:15 Hgb 12.0 gm/dL (12-16) 01/10/18 05:15 Hct 35.3 % (41.0-60) L 01/10/18 05:15 MCV 89.7 fl (81-100) 01/10/18 05:15 MCH 30.3 pg (27.0-31.0) 01/10/18 05:15 MCHC Differential 33.8 pg (28.0-36.0) 01/10/18 05:15 RDW 16.9 % (11.5-20.0) 01/10/18 05:15 Plt Count 219 Th/cmm (150-400) 01/10/18 05:15 MPV 7.7 fl 01/10/18 05:15 Neutrophils % 62.8 % (40.0-80.0) 01/10/18 05:15 Lymphocytes % 26.4 % (20.0-50.0) 01/10/18 05:15 Monocytes % 8.2 % (2.0-10.0) 01/10/18 05:15 Eosinophils % 2.5 % (0.0-5.0) 01/10/18 05:15 Basophils % 0.1 % (0.0-2.0) 01/10/18 05:15 PT 17.8 SECONDS (9.5-11.5) H 01/10/18 05:15 INR 1.76 (0.5-1.4) H 01/10/18 05:15 PTT (Actin FS) 32.1 SECONDS (26.0-38.0) 01/08/18 16:30 Sodium 137 mEq/L (136-145) 01/10/18 05:15 Potassium 3.7 mEq/L (3.5-5.1) 01/10/18 05:15 Chloride 106 mEq/L (98-107) 01/10/18 05:15 Carbon Dioxide 23.8 mEq/L (21.0-31.0) 01/10/18 05:15 Anion Gap 10.9 (7.0-16.0) 01/10/18 05:15 BUN 15 mg/dL (7-25) 01/10/18 05:15 Creatinine 0.7 mg/dL (0.6-1.2) 01/10/18 05:15 Est GFR ( Amer) TNP 01/10/18 05:15 Est GFR (Non-Af Amer) TNP 01/10/18 05:15 BUN/Creatinine Ratio 21.4 01/10/18 05:15 Glucose 93 mg/dL (70-105) 01/10/18 05:15 Whole Bld Lactic Acid 1.14 mmol/L (0.60-1.99) 01/08/18 16:30 Calcium 8.5 mg/dL (8.6-10.3) L 01/10/18 05:15 Phosphorus 3.4 mg/dL (2.5-5.0) 01/08/18 16:30 Magnesium 2.2 mg/dL (1.9-2.7) 01/08/18 16:30 Total Bilirubin 0.7 mg/dL (0.3-1.0) 01/10/18 05:15 AST 19 U/L (13-39) 01/10/18 05:15 ALT 19 U/L (7-52) 01/10/18 05:15 Alkaline Phosphatase 76 U/L (34-104) 01/10/18 05:15 Creatine Kinase 31 U/L (30-223) 01/09/18 06:00 Troponin I 0.01 ng/mL (0.01-0.05) 01/08/18 16:30 B-Natriuretic Peptide 302.0 pg/mL (5.0-100.0) H 01/10/18 05:15 Total Protein 5.9 gm/dL (6.0-8.3) L 01/10/18 05:15 Albumin 3.1 gm/dL (3.7-5.3) L 01/10/18 05:15 Globulin 2.8 gm/dL 01/10/18 05:15 Albumin/Globulin Ratio 1.1 (1.0-1.8) 01/10/18 05:15 TSH 0.42 uIU/ml (0.34-5.60) 01/08/18 16:30 Urine Source CATH 01/08/18 16:54 Urine Color YELLOW 01/08/18 16:54 Urine Clarity HAZY (CLEAR) 01/08/18 16:54 Urine pH 7.0 (4.6 - 8.0) 01/08/18 16:54 Ur Specific [place] 1.010 (1.005-1.030) 01/08/18 16:54 Urine Protein NEGATIVE mg/dL (NEGATIVE) 01/08/18 16:54 Urine Glucose (UA) NEGATIVE mg/dL (NEGATIVE) 01/08/18 16:54 Urine Ketones NEGATIVE mg/dL (NEGATIVE) 01/08/18 16:54 Urine Blood NEGATIVE (NEGATIVE) 01/08/18 16:54 Urine Nitrate POSITIVE (NEGATIVE) H 01/08/18 16:54 Urine Bilirubin NEGATIVE (NEGATIVE) 01/08/18 16:54 Urine Urobilinogen 0.2 E.U./dL (0.2 - 1.0) 01/08/18 16:54 Ur Leukocyte Esterase NEGATIVE (NEGATIVE) 01/08/18 16:54 Urine RBC 0-2 /hpf (0-5) 01/08/18 16:54 Urine WBC 6-10 /hpf (0-5) H 01/08/18 16:54 Ur Epithelial Cells FEW /lpf (FEW) 01/08/18 16:54 Urine Bacteria 4+ /hpf (NONE SEEN) H 01/08/18 16:54 Urine Opiates Screen NEGATIVE (NEGATIVE) 01/08/18 16:54 Urine Methadone Screen NEGATIVE (NEGATIVE) 01/08/18 16:54 Ur Barbiturates Screen NEGATIVE (NEGATIVE) 01/08/18 16:54 Ur Tricyclics Screen NEGATIVE (NEGATIVE) 01/08/18 16:54 Ur Phencyclidine Scrn NEGATIVE (NEGATIVE) 01/08/18 16:54 Amphetamines Screen NEGATIVE (NEGATIVE) 01/08/18 16:54 U Methamphetamines Scrn NEGATIVE (NEGATIVE) 01/08/18 16:54 U Benzodiazepines Scrn NEGATIVE (NEGATIVE) 01/08/18 16:54 U Cocaine Metab Screen NEGATIVE (NEGATIVE) 01/08/18 16:54 U Cannabinoids Screen NEGATIVE (NEGATIVE) 01/08/18 16:54 - Physical Exam Vitals and I&O: Vital Signs Temp 97.4 F 01/11/18 13:30 Pulse 77 01/11/18 14:03 Resp 17 01/11/18 13:30 BP 120/71 01/11/18 13:30 Pulse Ox 100 01/11/18 13:30 Intake & Output 01/10/18 01/11/18 01/11/18 18:59 06:59 18:59 Intake Total 1200 994.167 Balance 1200 994.167 Weight (lbs) 61.19 kg 61.689 kg 60.963 kg Intake: Intake, IV Amount 100 994.167 Meropenem 500 mg In 100 Sodium Chloride 0.9% 100 ml @ 100 mls/hr IV Q8H [facility] Rx#:[id number] Sodium Chloride 0.45% 1, 994.167 000 ml @ 50 mls/hr IV . Q20H [facility] Rx#:[id number] Oral 1100 Other: # Voids 3 2 # Bowel Movements 0 Weight Source Bedscale Bedscale Bedscale Active Medications: Current Medications Diltiazem HCl (Cardizem) 60 mg PO Q6HR [facility] Stop: 03/10/18 17:59 Last Admin: 01/11/18 14:03 Dose: 60 mg Furosemide (Lasix) 20 mg IVP DAILY [facility] Stop: 03/11/18 08:59 Last Admin: 01/11/18 08:20 Dose: 20 mg Sodium Chloride (Nacl 0.45%) 1,000 mls @ 50 mls/hr IV .Q20H [facility] Stop: 03/09/18 21:19 Last Admin: 01/11/18 00:33 Dose: 50 mls/hr Meropenem 500 mg/ Sodium (Chloride) 100 mls @ 100 mls/hr IV Q12HR [facility] Stop: 03/12/18 08:59 Last Admin: 01/11/18 08:22 Dose: 100 mls/hr Ipratropium [place] (Atrovent Neb 0.5mg/2.5ml) 0.5 mg HHN Q4HR PRN PRN Reason: Shortness of Breath Stop: 03/10/18 12:47 Potassium Chloride (Klor-Con) 10 meq PO DAILY [facility] Stop: 03/11/18 08:59 Last Admin: 01/11/18 08:20 Dose: 10 meq Potassium Chloride (Klor-Con) 20 meq PO DAILY [facility] Stop: 03/10/18 12:59 Last Admin: 01/11/18 08:20 Dose: 20 meq Warfarin Sodium (Coumadin) 1.5 mg PO SuTuThSa@1300 [facility]; Protocol Stop: 03/10/18 12:59 Last Admin: 01/10/18 12:34 Dose: 1.5 mg Warfarin Sodium (Coumadin) 2 mg PO MWF@1300 [facility]; Protocol Stop: 03/12/18 12:59 Last Admin: 01/11/18 14:02 Dose: 2 mg General: alert HEENT: NC/AT Neck: Supple Lungs: CTAB Cardiovascular: Normal S1, Normal S2 Abdomen: soft, non-tender Extremities: clear Neurological: no change Internal Medicine Assmt/Plan - Assessment Assessment: uti h/o cva htn atrial fib - Plan Plan: as per order sheet
--- NOTE | 2018-01-17 21:42 | Discharge Summary ---
DATE OF DISCHARGE: 01/11/2018 HOSPITAL COURSE: This patient was admitted to [facility] on 01/08/2018, was discharged back to [facility] on 01/11/2018. Apparently, this patient is an 82-year-old patient, presented with increasing weakness, poor appetite, found to have urinary tract infection. Diagnoses are urinary tract infection, history of cerebrovascular accident, history of hypertension, atrial fibrillation. The patient was treated with IV antibiotics. Dr. Granados, Pulmonary consult as well as a consult from Cardiology was seen. The patient was in stable condition. On 01/11/2018, patient was discharged back to [facility] with IV antibiotics where I will be following the patient. CONDITION AT THE TIME OF DISCHARGE: Stable. [facility]# [id number]
== END 2018-01-11 16:35 | DRG 291 ==
LOC: ER 15:24 → EDSEX 15:24 → TELE 18:00
PROVIDERS: ADMIT Internal Medicine; ATTEND Internal Medicine
DX: I11.0 Hypertensive heart disease with heart failure (principal); J18.9 Pneumonia, unspecified organism; N39.0 Urinary tract infection, site not specified; I50.33 Acute on chronic diastolic (congestive) heart failure; I48.91 Unspecified atrial fibrillation; B96.20 Unspecified Escherichia coli [E. coli] as the cause of diseases classified elsewhere; Z16.12 Extended spectrum beta lactamase (ESBL) resistance; Z88.0 Allergy status to penicillin; Z83.3 Family history of diabetes mellitus; Z86.73 Personal history of transient ischemic attack (TIA), and cerebral infarction without residual deficits
CPT/HCPCS: 36415-UA; 70450-TC; 71045-TC; 80053-TC; 80307; 81001-TC; 82550-TC; 83605; 83735-TC; 83880-TC; 84100-TC; 84443-TC; 84484-TC; 85025-TC; 85610-TC; 87086-90; 93005; 94760; 96374; 96375; J1940; J1956; J2185; J3370; J7121; Z7610